=== PATIENT | male | born 1930 | race Caucasian/White ===

== ENCOUNTER 2017-08-26 09:43 | Emergency (ER) | payer MEDICARE, OTHER ==
[2017-08-26] MEDS ORDERED: 0.9 % SODIUM CHLORIDE 1,000 ML BAG IV ONE (09:52)
--- NOTE | 2017-08-26 09:57 | Emergency Department Record ---
History of Present Illness - General Chief Complaint: Dizziness Stated Complaint: WEAK/DIZZY Time Seen by Provider: 08/26/17 09:50 Source: Patient, Family Mode of Arrival: Wheelchair Limitations: No limitations - History of Present Illness Initial Comments: 86 yo male presents with a feeling of dizziness and lightheaded starting yesterday morning. He states when he changes position or stands up he gets dizzy and light headed. No headaches, vision changes, double vision, speech changes, coordination changes of the arms or legs. NO weakness of movements. He states he has prior atrial fibrillation but checks his pulse frequently and it has been regular. No chest pain or shortness of breath. No history of stroke. He has had similar episodes on several occasions in the past. He has a history of vertigo. PCP is Lis. Cardio is Voice. MD Complaint: Dizziness, Lightheadedness -: Days(s) (2) Timing: Gradual onset Description: Difficulty walking, Lightheadedness, Sense of movement History of Same: Yes History of Trauma: No Severity: Moderate Improves With: Remaining still Worsens With: Movement, Position Associated Symptoms: Denies other symptoms - Nehal Coma Scale Eye Response: (4) Open spontaneously Motor Response: (6) Obeys commands Verbal Response: (5) Oriented Nehal Total: 15 - Related Data Home Medications Medication Instructions Recorded Confirmed Last Taken Aspirin [Adult Aspirin Regimen] 81 mg PO DAILY 08/26/17 08/26/17 08/26/17 Cranberry Fruit Extract [Cranberry] 500 mg PO ASDIR 08/26/17 08/26/17 08/26/17 Previous Rx's Medication Instructions Recorded Meclizine HCl [Antivert] 25 mg PO Q8H #20 tablet 08/26/17 Allergies Allergy/AdvReac Type Severity Reaction Status Date / Time hydrocodone bitartrate Allergy ALTERED Unverified 04/08/17 16:24 [From Vicodin] MENTAL STATUS rofecoxib [From Vioxx] AdvReac ALTERED Verified 08/26/17 09:52 MENTAL STATUS Review of Systems Constitutional: Denies: Chills, Fever, Malaise, Weakness Eyes: Reports: Other (No double vision). Denies: Eye discharge, Eye pain, Photophobia, Vision change ENT: Denies: Congestion, Dental pain, Ear pain, Throat pain Respiratory: Denies: Cough, Dyspnea, Hemoptysis, Stridor, Wheezes Cardiovascular: Denies: Arrhythmia (hx of afib but not palpitations), Chest pain , Dyspnea on exertion, Edema, Palpitations, Syncope Endocrine: Denies: Fatigue, Polydipsia, Polyuria Gastrointestinal: Denies: Abdominal pain, Diarrhea, Nausea, Vomiting Genitourinary: Denies: Dysuria, Frequency, Hematuria Musculoskeletal: Denies: Arthralgia, Back pain, Joint swelling, Myalgia Skin: Denies: Bruising, Change in color, Rash Neurological: Reports: Vertigo. Denies: Abnormal gait, Confusion, Headache, Numbness, Paresthesias, Seizure, Tingling, Tremors, Weakness Psychiatric: Denies: Anxiety Hematological/Lymphatic: Denies: Blood Clots, Easy bleeding, Easy bruising, Swollen glands Past Medical History - SOCIAL HISTORY Smoking Status: Former smoker - RESPIRATORY Hx Respiratory Disorders: No - CARDIOVASCULAR Hx Cardio Disorders: Yes Hx Hypotension: Yes (postural) Comment:: high cholestrol - NEURO Hx Neuro Disorders: No - GI Hx GI Disorders: No - Hx Genitourinary Disorders: Yes Hx Prostate Problems: Yes - ENDOCRINE Hx Endocrine Disorders: No - MUSCULOSKELETAL Hx Musculoskeletal Disorders: No - PSYCH Hx Psych Problems: No - HEMATOLOGY/ONCOLOGY Hx Hematology/Oncology Disorders: Yes Hx Cancer: Yes (prostate) Physical Exam - General General Appearance: Alert, Oriented x3, Cooperative, No acute distress, Other ( Well appearing, clear speech, very conversational without limits) Limitations: No limitations - Head Head exam: Atraumatic, Normocephalic, Normal inspection Head exam detail: negative: Abrasion, Contusion, Hematoma - Eye Eye exam: Normal appearance, PERRL, EOMI. negative: Conjunctival injection, Nystagmus, Periorbital swelling, Scleral icterus - ENT ENT exam: Normal exam, Mucous membranes moist, Normal orophraynx, TM's normal bilaterally (minimal non occlusive wax). negative: Mucous membranes dry Ear exam: Normal external inspection Nasal Exam: Normal inspection Mouth exam: Normal external inspection Teeth exam: Normal inspection Throat exam: Normal inspection - Neck Neck exam: Normal inspection, Full ROM. negative: Lymphadenopathy, Meningismus , Tenderness - Respiratory Respiratory exam: Normal lung sounds bilaterally. negative: Respiratory distress, Rhonchi, Stridor, Wheezes - Cardiovascular Cardiovascular Exam: Regular rate, Normal rhythm, Normal heart sounds. negative : Diastolic murmur, Irregular rhythm, Systolic murmur Peripheral Pulses: 2+: Radial (R), Radial (L) - GI/Abdominal GI/Abdominal exam: Soft. negative: Tenderness - Rectal Rectal exam: Deferred - exam: Deferred - Extremities Extremities exam: Normal inspection, Full ROM, Normal capillary refill. negative: Calf tenderness, Joint swelling, Pedal edema, Tenderness - Back Back exam: Reports: Normal inspection. Denies: CVA tenderness (R), CVA tenderness (L), Paraspinal tenderness, Vertebral tenderness - Neurological Neurological exam: Alert, CN II-XII intact, Oriented X3, Other (Normal FTN, NO PND, symmetric face clear speech). negative: Altered, Motor sensory deficit - Psychiatric Psychiatric exam: Normal affect, Normal mood. negative: Agitated, Anxious - Skin Skin exam: Dry, Intact, Normal color, Warm Course - Reevaluation(s) Reevaluation #1: The patient is sitting up in the bed. He is asymptomatic. He does reproduce the symptoms with bending over forward. Less reproduced with turning of the head. No weakness or coordination changes on examination. The symptoms are mild and definitely reproduced with position changes. No symptoms if still. No additional neurologic signs of symptoms associated. 08/26/17 09:58 08/26/17 10:00 EKG 09:57 paced rhythm, capture. No acute abnormality. 08/26/17 10:48 No acute changes on the CBC 08/26/17 11:02 No significant acute changes on the CMP 08/26/17 11:02 No acute changes of the brain. Age related changes. Thickening of the ethmoid air cells. 08/26/17 11:05 08/26/17 11:32 The UA is negative for acute process 08/26/17 11:54 The patient's fluid are complete He is feeling much improved We discussed home care, antivert, close follow up with the PCP and reasons to return to the ED Medical Decision Making - Lab Data Result diagrams: 08/26/17 10:05 08/26/17 10:05 Disposition Disposition: Discharge Clinical Impression: Dizziness Disposition: Home, Self-Care Condition: (1) Good Instructions: Vertigo (ED), Dizziness (ED) Additional Instructions: Return immediately if you have any new symptoms or concerns Call your doctor for close follow up Return if the antivert is not controlling the symptoms Prescriptions: Meclizine HCl [Antivert] 25 mg PO Q8H #20 tablet Forms: Patient Portal Access Time of Disposition: 11:05 Quality - Quality Measures Quality Measures: N/A - Blood Pressure Screening Does Patient Have Any of the Following: Active Dx of HTN Blood Pressure Classification: Hypertensive Reading Systolic Measurement: 141 Diastolic Measurement: 72 Screening for High Blood Pressure: Patient Exclusion, Hx of HTN [G9744]
[2017-08-26 10:21] LABS: BASO % 0.5 % (0-6); EOS % 4.1 % (0-6); GRAN % 55.3 % (47-80); HEMOGLOBIN 13.6 gm/dl (14.0-18.0); LYMPH % 30.9 % (16-45); MEAN CELL VOLUME 93.4 fl (81-97); MEAN CORPUSCULAR HGB CONC 33.2 g/dl (32-36); MEAN PLATELET VOLUME 9.8 fl (7.4-10.4); MONO % 9.2 % (0-9); PLATELET COUNT 151 K/uL (130-400); RED BLOOD COUNT 4.39 M/uL (4.40-5.70); RED CELL DISTRIBUTION WIDTH 13.5 % (11.5-14.5); WHITE BLOOD COUNT W/O DIFF 5.6 K/uL (4.2-12.2)
[2017-08-26 10:27] LABS: MEAN CORPUSCULAR HEMOGLOBIN 30.9 pg (27-33)
[2017-08-26 10:44] LABS: BLOOD UREA NITROGEN 24 mg/dL (8-23); CREATININE 0.8 mg/dL (0.7-1.2); EST GLOMERULAR FILTRATION RATE > 60 mL/min; TOTAL PROTEIN 6.8 g/dL (6.6-8.7)
[2017-08-26 10:46] LABS: GLUCOSE,RANDOM 121 mg/dL (74-109)
[2017-08-26 10:49] LABS: ALB/GLOB RATIO 1.4 (1.1-1.8); ALKALINE PHOSPHATASE 39 U/L (40-129); ALT/SGPT 20 U/L (<41); AST/SGOT 16 U/L (10.0-50.0)
[2017-08-26 11:07] LABS: URINE APPEARANCE CLEAR; URINE BILIRUBIN NEGATIVE (NEGATIVE); URINE BLOOD NEGATIVE (NEGATIVE); URINE COLOR YELLOW; URINE GLUCOSE (UA) NEGATIVE (NEGATIVE); URINE KETONE NEGATIVE (NEGATIVE); URINE LEUKOCYTE ESTERASE NEGATIVE (NEGATIVE); URINE NITRITE NEGATIVE (NEGATIVE); URINE PROTEIN NEGATIVE (NEGATIVE); URINE UROBILINOGEN 0.2 E.U./dL (0.20 - 1.00)
[2017-08-26] MEDS ORDERED: MECLIZINE 25 MG TABLET PO ONE (11:17)
--- NOTE | 2017-08-27 09:20 | CT SCAN REPORT ---
EXAM: CT OF THE BRAIN WITHOUT CONTRAST HISTORY: DIZZINESS. TECHNIQUE: CT of the brain without contrast was obtained. Comparison: None. FINDINGS: The globes are intact. Mucosal thickening and polyps of the ethmoid air cells bilaterally. There is no displaced or depressed skull fracture. There is no intra or extraaxial hemorrhage. Bilateral basal ganglia calcifications. CT is limited for the evaluation of acute infarct. No CT evidence for large or territorial acute infarct. Age appropriate atrophy with small vessel ischemic change. No mass or midline shift. IMPRESSION: 1. AGE APPROPRIATE ATROPHY. SMALL VESSEL ISCHEMIC CHANGE. 2. MUCOSAL THICKENING AND POLYPS OF THE ETHMOID AIR CELLS BILATERALLY. JOB NUMBER: [id number] MTDD
== END 2017-08-26 12:30 | disposition home or self-care (01) ==
LOC: ER 09:43
DX: R42 Dizziness and giddiness (principal); I48.91 Unspecified atrial fibrillation; I10 Essential (primary) hypertension; Z87.891 Personal history of nicotine dependence
CPT/HCPCS: 70450; 80053; 81003; 83735; 85025; 93005; 93010; 96360; 96361; 99284; J7030

== ENCOUNTER 2017-09-22 12:38 | Emergency (ER) | payer MEDICARE, OTHER ==
--- NOTE | 2017-09-22 12:53 | Emergency Department Record ---
History of Present Illness - General Chief Complaint: Dizziness Stated Complaint: DIZINESS Source: Patient Mode of Arrival: Ambulatory Limitations: No limitations - History of Present Illness Initial Comments: 86 yo male presents with an episode of brief lightheadedness that he described as a hot flash while sitting helping his clean up in the bathroom. She is physically very frail and he provides most of her care. No chest pain. He is on Niacin and has had similar episodes before. He was able to get to the bed and lay down. The symptoms resolved at that time. When he laid down he did break out in a sweat that has resolved. He is now completely back to baseline and feels like he "can wrestle a tiger". His pacer was checked about 1 week ago and reports it was given a normal report. No chest pain, shortness of breath, cough, fever, leg swelling. MD Complaint: Dizziness, Lightheadedness -: Minutes(s) Timing: Sudden onset Description: Lightheadedness History of Same: No History of Trauma: No Severity: Moderate Improves With: Rest Worsens With: Position Associated Symptoms: Diaphoresis - Nehal Coma Scale Eye Response: (4) Open spontaneously Motor Response: (6) Obeys commands Verbal Response: (5) Oriented Nehal Total: 15 - Related Data Previous Rx's Medication Instructions Recorded Meclizine HCl [Antivert] 25 mg PO Q8H #20 tablet 08/26/17 Cephalexin [Keflex] 500 mg PO TID #21 cap 09/22/17 Allergies Allergy/AdvReac Type Severity Reaction Status Date / Time hydrocodone bitartrate Allergy ALTERED Verified 09/22/17 12:46 [From Vicodin] MENTAL STATUS rofecoxib [From Vioxx] AdvReac ALTERED Verified 09/22/17 12:46 MENTAL STATUS Review of Systems Constitutional: Denies: Chills, Fever, Malaise, Weakness Eyes: Denies: Eye discharge ENT: Denies: Congestion, Throat pain Respiratory: Denies: Cough, Dyspnea Cardiovascular: Denies: Chest pain, Palpitations, Syncope Endocrine: Denies: Fatigue Gastrointestinal: Denies: Abdominal pain, Diarrhea, Nausea, Vomiting Genitourinary: Denies: Dysuria, Frequency, Hematuria Musculoskeletal: Denies: Arthralgia, Back pain, Joint swelling, Myalgia Skin: Denies: Bruising, Change in color, Rash Neurological: Denies: Abnormal gait, Confusion, Headache, Numbness, Paresthesias , Seizure, Tingling, Tremors, Vertigo, Weakness Psychiatric: Denies: Anxiety Hematological/Lymphatic: Denies: Blood Clots, Easy bleeding, Easy bruising, Swollen glands Past Medical History - SOCIAL HISTORY Smoking Status: Former smoker - RESPIRATORY Hx Respiratory Disorders: No - CARDIOVASCULAR Hx Cardio Disorders: Yes Hx Hypotension: Yes (postural) Comment:: high cholestrol - NEURO Hx Neuro Disorders: No - GI Hx GI Disorders: No - Hx Genitourinary Disorders: Yes Hx Prostate Problems: Yes - ENDOCRINE Hx Endocrine Disorders: No - MUSCULOSKELETAL Hx Musculoskeletal Disorders: No - PSYCH Hx Psych Problems: No - HEMATOLOGY/ONCOLOGY Hx Hematology/Oncology Disorders: Yes Hx Cancer: Yes (prostate) Physical Exam - General General Appearance: Alert, Oriented x3, Cooperative, No acute distress Limitations: No limitations - Head Head exam: Normal inspection - Eye Eye exam: Normal appearance, PERRL. negative: Conjunctival injection, Scleral icterus - ENT ENT exam: Normal exam Ear exam: Normal external inspection Nasal Exam: Normal inspection Mouth exam: Normal external inspection Teeth exam: Normal inspection Throat exam: Normal inspection - Neck Neck exam: Normal inspection, Full ROM. negative: Tenderness - Respiratory Respiratory exam: Normal lung sounds bilaterally. negative: Respiratory distress - Cardiovascular Cardiovascular Exam: Regular rate, Normal rhythm, Normal heart sounds Peripheral Pulses: 2+: Radial (R), Radial (L) - GI/Abdominal GI/Abdominal exam: Soft. negative: Tenderness - Rectal Rectal exam: Deferred - exam: Deferred - Extremities Extremities exam: Normal inspection, Full ROM, Normal capillary refill. negative: Tenderness - Back Back exam: Reports: Normal inspection, Full ROM. Denies: CVA tenderness (R), CVA tenderness (L), Muscle spasm, Rash noted, Tenderness - Neurological Neurological exam: Alert, Normal gait, Oriented X3, Reflexes normal. negative: Altered, Motor sensory deficit - Psychiatric Psychiatric exam: Normal affect, Normal mood - Skin Skin exam: Dry, Intact, Normal color, Warm Course - Reevaluation(s) Reevaluation #1: 09/22/17 13:10 The patient states he is able to interrogate the pacer by phone/internet. He called the number for his manufacturing to assist in this process. 09/22/17 13:53 EKG 1242 Paced AV paced, capture, no ectopy, acute abnormality. No changes from the prior. 09/22/17 14:24 The labs were reviewed. No acute changes of the CBC,CMP,Mg Pace rhythm remains on the monitor 09/22/17 15:03 The troponin is negative Awaiting a call from the pacemaker c s s representative. 09/22/17 16:26 The pacer rn neurosurgical rep returned our call The patient family brought in his interrogation device The patient interrogated his device and a report was sent to his pacer rep to evaluate for cardiac event at the time of symptoms 09/22/17 16:44 The [employer] interrogation rep called. The device was interrogated. Normal function, no malfunction, no arrhythmia. 09/22/17 16:54 The patient has been in the ED 4 hours. Repeat troponin ordered He asked be to look at his right great toe. He has a mild ingrown nail with a thickened nail. There is minimal granulation tissue at the distal end. He requests referral for podiatry 09/22/17 17:38 The repeat troponin is negative Medical Decision Making - Lab Data Result diagrams: 09/22/17 13:55 09/22/17 13:55 Disposition Disposition: Discharge Clinical Impression: Hot flash in male Disposition: Home, Self-Care Condition: (1) Good Instructions: Ingrown Nail (ED), Dizziness (ED) Additional Instructions: Stop your Niacin for one week Call your doctor tomorrow for a recheck this week Return to the ER if you have any more hot flashes. Prescriptions: Cephalexin [Keflex] 500 mg PO TID #21 cap Referrals: NEIL HERRERA [DOCTOR OF PODIATRY MEDICINE] - Forms: Patient Portal Access Time of Disposition: 16:57 Quality - Quality Measures Quality Measures: N/A - Blood Pressure Screening Does Patient Have Any of the Following: Active Dx of HTN Blood Pressure Classification: Hypertensive Reading Systolic Measurement: 153 Diastolic Measurement: 79 Screening for High Blood Pressure: Patient Exclusion, Hx of HTN [G9744]
[2017-09-22 14:03] LABS: BASO % 0.3 % (0-6); EOS % 1.8 % (0-6); GRAN % 69.6 % (47-80); HEMATOCRIT 38.1 % (42.0-52.0); HEMOGLOBIN 12.4 gm/dl (14.0-18.0); LYMPH % 20.9 % (16-45); MEAN CELL VOLUME 95.5 fl (81-97); MEAN CORPUSCULAR HGB CONC 32.5 g/dl (32-36); MEAN PLATELET VOLUME 9.9 fl (7.4-10.4); MONO % 7.4 % (0-9); PLATELET COUNT 136 K/uL (130-400); RED BLOOD COUNT 3.99 M/uL (4.40-5.70); WHITE BLOOD COUNT W/O DIFF 7.3 K/uL (4.2-12.2)
[2017-09-22 14:15] LABS: BLOOD UREA NITROGEN 25 mg/dL (8-23); CREATININE 0.8 mg/dL (0.7-1.2); EST GLOMERULAR FILTRATION RATE > 60 mL/min
[2017-09-22 14:16] LABS: TOTAL PROTEIN 6.6 g/dL (6.6-8.7)
[2017-09-22 14:18] LABS: GLUCOSE,RANDOM 138 mg/dL (74-109)
[2017-09-22 14:20] LABS: ALB/GLOB RATIO 1.4 (1.1-1.8); ALBUMIN 3.9 g/dL (4.0-5.0); ALT/SGPT 19 U/L (<41); AST/SGOT 17 U/L (10.0-50.0)
[2017-09-22 14:21] LABS: ALKALINE PHOSPHATASE 40 U/L (40-129)
[2017-09-22 16:46] LABS: URINE APPEARANCE CLEAR; URINE BILIRUBIN NEGATIVE (NEGATIVE); URINE BLOOD NEGATIVE (NEGATIVE); URINE COLOR YELLOW; URINE GLUCOSE (UA) NEGATIVE (NEGATIVE); URINE KETONE NEGATIVE (NEGATIVE); URINE LEUKOCYTE ESTERASE NEGATIVE (NEGATIVE); URINE NITRITE NEGATIVE (NEGATIVE); URINE PROTEIN NEGATIVE (NEGATIVE); URINE UROBILINOGEN 0.2 E.U./dL (0.20 - 1.00)
== END 2017-09-22 18:35 | disposition home or self-care (01) ==
LOC: ER 12:38
DX: R23.2 Flushing (principal); R42 Dizziness and giddiness; R61 Generalized hyperhidrosis; L60.0 Ingrowing nail; I95.1 Orthostatic hypotension; Z87.891 Personal history of nicotine dependence
CPT/HCPCS: 80053; 81003; 83735; 84484; 85025; 93005; 93010; 99284

== ENCOUNTER 2018-02-23 14:23 | Emergency (ER) | payer MEDICARE, OTHER ==
--- NOTE | 2018-02-23 14:46 | Emergency Department Record ---
History of Present Illness - General Chief complaint: Male Urogenital Problem Stated complaint: BOOD WHOILE URINATING,URGENT FEELING TO URINATE Time Seen by Provider: 02/23/18 14:35 Source: Patient Mode of Arrival: Ambulatory Limitations: No limitations - History of Present Illness Initial comments: The patient is here due to a 2 hour hx of frequent urination and dysuria. The onset was sudden. The patient is having mild pelvic pain but no AP, nausea, vomiting, or back pain. MD Complaint: Dysuria Onset/Timin -: Hour(s) Location: Abdomen Radiation: None Severity scale (1-10): 8 Quality: Burning Consistency: Constant Improves with: None Worsens with: None - Related Data Previous Rx's Medication Instructions Recorded Meclizine HCl [Antivert] 25 mg PO Q8H #20 tablet 08/26/17 Sulfamethoxazole/Trimethoprim 1 tab PO BID #14 tab 02/23/18 [Bactrim Ds] Allergies Allergy/AdvReac Type Severity Reaction Status Date / Time hydrocodone bitartrate Allergy ALTERED Unverified 10/28/17 14:33 [From Vicodin] MENTAL STATUS rofecoxib [From Vioxx] AdvReac ALTERED Unverified 10/28/17 14:33 MENTAL STATUS Travel Screening - Travel/Exposure Within Last 30 Days Have you traveled within the last 30 days?: No - Travel/Exposure Within Last Year Have you traveled outside the [place] in the last year?: No - Additonal Travel Details Have you been exposed to anyone with a communicable illness?: No Review of Systems Constitutional: Denies: Chills, Fever Eyes: Denies: Eye discharge ENT: Denies: Congestion Respiratory: Denies: Cough, Dyspnea Cardiovascular: Denies: Arrhythmia Endocrine: Denies: Fatigue Gastrointestinal: Denies: Abdominal pain Genitourinary: Reports: Dysuria Musculoskeletal: Denies: Arthralgia, Back pain Past Medical History - SOCIAL HISTORY Smoking Status: Former smoker Alcohol Use: None Drug Use: None - RESPIRATORY Hx Respiratory Disorders: No - CARDIOVASCULAR Hx Cardio Disorders: Yes Hx Hypotension: Yes (postural) Hx Pacemaker/Defib: Yes Comment:: high cholestrol - NEURO Hx Neuro Disorders: No - GI Hx GI Disorders: No - Hx Genitourinary Disorders: Yes Hx Kidney Stones: Yes Hx Prostate Problems: Yes - ENDOCRINE Hx Endocrine Disorders: No - MUSCULOSKELETAL Hx Musculoskeletal Disorders: No - PSYCH Hx Psych Problems: No - HEMATOLOGY/ONCOLOGY Hx Hematology/Oncology Disorders: Yes Hx Cancer: Yes (prostate) Family Medical History Any Significant Family History?: No Hx Cancer: Father, Mother Physical Exam - General General Appearance: Alert, Oriented x3, Cooperative, No acute distress - Head Head exam: Atraumatic, Normocephalic, Normal inspection - Eye Eye exam: Normal appearance, PERRL - Neck Neck exam: Normal inspection, Full ROM. negative: Tenderness - Respiratory Respiratory exam: Normal lung sounds bilaterally. negative: Respiratory distress - Cardiovascular Cardiovascular Exam: Regular rate, Normal rhythm, Normal heart sounds. negative : Diastolic murmur, Systolic murmur - GI/Abdominal GI/Abdominal exam: Soft, Normal bowel sounds. negative: Rebound, Rigid, Tenderness - Extremities Extremities exam: Normal inspection, Full ROM, Normal capillary refill. negative: Tenderness - Back Back exam: Denies: Normal inspection - Neurological Neurological exam: Alert, Normal gait. negative: Abnormal gait, Motor sensory deficit Course Vital Signs 02/23/18 14:24 Temperature 98.3 F Pulse Rate 68 Respiratory 16 Rate Blood Pressure 152/83 Pulse Ox 94 L - Reevaluation(s) Reevaluation #1: The patient had a bladder scan done and the volume was < 15 mls. 02/23/18 14:58 Reevaluation #2: The patient is doing a lot better at this time. He denies any pain or discomfort and on exam his abdomen is very soft and nontender. I did explain to him the need to continue the Bactrim and to see his family doctor later this week. He is to return to the ER for any worsening symptoms. 02/23/18 15:33 02/23/18 15:34 Medical Decision Making - Data Complexity MDM Data: Labs Ordered and/or Reviewed - Lab Data Result diagrams: 02/23/18 14:50 02/23/18 14:50 Disposition Disposition: Discharge Clinical Impression: Cystitis Disposition: Home, Self-Care Condition: (2) Stable Instructions: Urinary Tract Infection in Men (ED) Additional Instructions: Please stop the Eliquis for 1 day and take the Bactrim as directed. Drink plenty of fluids. Please see your family doctor for recheck later this week. Please return to the ER for any pain, vomiting, fever, or bleeding. Prescriptions: Sulfamethoxazole/Trimethoprim [Bactrim Ds] 1 tab PO BID #14 tab Forms: Patient Portal Access Time of Disposition: 15:37 Quality - Quality Measures Quality Measures: N/A - Blood Pressure Screening View Details: Yes Does Patient Have Any of the Following: No Blood Pressure Classification: Pre-Hypertensive BP Reading Systolic Measurement: 159 Diastolic Measurement: 82 Screening for High Blood Pressure: < Pre-Hypertensive BP, F/U Documented > [ G8950] Pre-Hypertensive Follow-up Interventions: Referral to alternative/primary care provider.
[2018-02-23 15:00] LABS: BASO % 0.2 % (0-6); EOS % 1.7 % (0-6); GRAN % 72.7 % (47-80); HEMATOCRIT 38.7 % (42.0-52.0); HEMOGLOBIN 12.6 gm/dl (14.0-18.0); LYMPH % 18.4 % (16-45); MEAN CELL VOLUME 91.5 fl (81-97); MEAN CORPUSCULAR HEMOGLOBIN 29.7 pg (27-33); MEAN CORPUSCULAR HGB CONC 32.6 g/dl (32-36); MEAN PLATELET VOLUME 9.7 fl (7.4-10.4); PLATELET COUNT 146 K/uL (130-400); RED BLOOD COUNT 4.23 M/uL (4.40-5.70); RED CELL DISTRIBUTION WIDTH 13.3 % (11.5-14.5); URINE APPEARANCE CLOUDY; URINE BILIRUBIN MODERATE (NEGATIVE); URINE BLOOD LARGE (NEGATIVE); URINE COLOR RED; URINE GLUCOSE (UA) NEGATIVE (NEGATIVE); URINE KETONE TRACE (NEGATIVE); URINE LEUKOCYTE ESTERASE LARGE (NEGATIVE); URINE NITRITE POSITIVE (NEGATIVE)
[2018-02-23 15:01] LABS: URINE PROTEIN 300 mg/dL (NEGATIVE)
[2018-02-23 15:08] LABS: URINE BACTERIA 1+; URINE EPITHELIAL CELLS NONE SEEN (FEW); URINE WBC 16 - 20 (0-2/hpf)
[2018-02-23 15:12] LABS: BLOOD UREA NITROGEN 21 mg/dL (8-23); EST GLOMERULAR FILTRATION RATE > 60 mL/min; INR 1.1; PARTIAL THROMBOPLASTIN TIME 31.9 SECONDS (24.5-39.1); PROTHROMBIN TIME (PATIENT) 11.2 SECONDS (9.5-12.1)
[2018-02-23 15:14] LABS: GLUCOSE,RANDOM 119 mg/dL (74-109)
[2018-02-23] MEDS ORDERED: TMP/SMZ 160MG/800MG TAB PO ONE (15:17)
== END 2018-02-23 16:00 | disposition home or self-care (01) ==
LOC: ER 14:23
DX: N30.90 Cystitis, unspecified without hematuria (principal); R10.9 Unspecified abdominal pain; I95.9 Hypotension, unspecified; Z87.891 Personal history of nicotine dependence; Z95.0 Presence of cardiac pacemaker; Z79.01 Long term (current) use of anticoagulants
CPT/HCPCS: 99283 ×2; 85025; 85730; 85610; 80048; 81001; J3490

== ENCOUNTER 2018-04-12 15:43 | Observation (INO) | payer MEDICARE, OTHER ==
--- NOTE | 2018-04-12 15:57 | Emergency Department Record ---
History of Present Illness - General Chief complaint: Male Urogenital Problem Stated complaint: UTI Time Seen by Provider: 04/12/18 15:57 Source: Patient Mode of Arrival: Ambulatory Limitations: No limitations - History of Present Illness Initial comments: The patient is here due to a one day hx of weakness, dysuria and low grade fever. He did have a UA 4 days ago that was positive for an Ecoli infection. The patient also has had a chronic cough. There has been no hx of vomiting, diarrhea, back pain, or PHILLIPS. MD Complaint: Dysuria Onset/Timin -: Days(s) Severity: Moderate Severity scale (1-10): 1 Reports: Denies other symptoms - Related Data Previous Rx's Medication Instructions Recorded Meclizine HCl [Antivert] 25 mg PO Q8H #20 tablet 08/26/17 Allergies Allergy/AdvReac Type Severity Reaction Status Date / Time hydrocodone bitartrate Allergy ALTERED Verified 04/12/18 15:53 [From Vicodin] MENTAL STATUS rofecoxib [From Vioxx] AdvReac ALTERED Verified 04/12/18 15:53 MENTAL STATUS Travel Screening - Travel/Exposure Within Last 30 Days Have you traveled within the last 30 days?: No - Travel/Exposure Within Last Year Have you traveled outside the [place] in the last year?: No - Additonal Travel Details Have you been exposed to anyone with a communicable illness?: No - Travel Symptoms Symptom Screening: None Review of Systems Constitutional: Reports: Fever, Malaise. Denies: Chills Eyes: Denies: Eye discharge ENT: Reports: Congestion Respiratory: Reports: Cough. Denies: Dyspnea Cardiovascular: Denies: Arrhythmia Endocrine: Reports: Fatigue Gastrointestinal: Denies: Abdominal pain, Vomiting Genitourinary: Reports: Dysuria Musculoskeletal: Denies: Arthralgia Skin: Denies: Bruising Past Medical History - SOCIAL HISTORY Smoking Status: Former smoker Alcohol Use: None Drug Use: None - RESPIRATORY Hx Respiratory Disorders: No - CARDIOVASCULAR Hx Cardio Disorders: Yes Hx Hypotension: Yes (postural) Hx Pacemaker/Defib: Yes Comment:: high cholestrol - NEURO Hx Neuro Disorders: No - GI Hx GI Disorders: No - Hx Genitourinary Disorders: Yes Hx Kidney Stones: Yes Hx Prostate Problems: Yes Hx UTI: Yes (recently) - ENDOCRINE Hx Endocrine Disorders: No - MUSCULOSKELETAL Hx Musculoskeletal Disorders: No - PSYCH Hx Psych Problems: No - HEMATOLOGY/ONCOLOGY Hx Hematology/Oncology Disorders: Yes Hx Cancer: Yes (prostate) Family Medical History Any Significant Family History?: Yes Hx Cancer: Father, Mother Physical Exam - General General Appearance: Alert, Oriented x3, Cooperative, No acute distress - Head Head exam: Atraumatic, Normocephalic, Normal inspection - Eye Eye exam: Normal appearance, PERRL - Neck Neck exam: Normal inspection, Full ROM. negative: Tenderness - Respiratory Respiratory exam: Normal lung sounds bilaterally. negative: Respiratory distress - Cardiovascular Cardiovascular Exam: Regular rate, Normal rhythm, Normal heart sounds - GI/Abdominal GI/Abdominal exam: Soft, Normal bowel sounds. negative: Tenderness - Extremities Extremities exam: Normal inspection, Full ROM, Normal capillary refill. negative: Tenderness - Back Back exam: Reports: Normal inspection - Neurological Neurological exam: Alert, Normal gait. negative: Abnormal gait, Motor sensory deficit - Psychiatric Psychiatric exam: negative: Anxious Course Vital Signs 04/12/18 15:49 Temperature 100.5 F H Pulse Rate 91 H Respiratory 24 Rate Blood Pressure 166/74 Pulse Ox 95 - Reevaluation(s) Reevaluation #1: The patient is doing a lot better at this time. His temp is improving and he denies any CP, SOB, or [place]. His initial RA biox was 95% but now laying down it is reading about 90% but the patient is asymptomatic. I did discuss the positive UA with the fever and the need to stay as an inpatient in the hospital and the patient did agree. I also did discuss the case with Dr. Tamayo and he does agree with the plan to admit. 04/12/18 17:38 Medical Decision Making - Data Complexity MDM Data: Labs Ordered and/or Reviewed, X-Ray Ordered and/or Reviewed - Lab Data Result diagrams: 04/12/18 16:00 04/12/18 16:00 - Radiology Data Radiology results: Report reviewed (CXR: Neg.) Disposition Disposition: Admit Clinical Impression: Urinary tract infection Qualifiers: Urinary tract infection type: site unspecified Hematuria presence: with hematuria Qualified Code(s): N39.0 - Urinary tract infection, site not specified Disposition: Still a Patient at [facility] Decision to Admit: Admit from ER Decision to Admit Date: 04/12/18 Decision to Admit Time: 17:40 Accepting Physician: Belkis Time Discussed w/Accepting Physician: 17:41 Condition: (2) Stable Forms: Patient Portal Access Time of Disposition: 17:41 Quality - Quality Measures Quality Measures: N/A - Blood Pressure Screening View Details: Yes Does Patient Have Any of the Following: Active Dx of HTN Blood Pressure Classification: Hypertensive Reading Systolic Measurement: 166 Diastolic Measurement: 74 Screening for High Blood Pressure: Patient Exclusion, Hx of HTN [[id number]]
[2018-04-12] MEDS ORDERED: ACETAMINOPHEN 325 MG TAB PO ONE (16:02)
[2018-04-12] MEDS ORDERED: SODIUM CHLORIDE 0.9% 500 ML IV ONE (16:02)
[2018-04-12] MEDS ORDERED: CEFTRIAXONE SODIUM 1 GM in 0.9 % SODIUM CHLORIDE 100ML 100 ML IVPB ONE (16:03)
[2018-04-12 16:10] LABS: BASO % 0.1 % (0-6); EOS % 0.1 % (0-6); GRAN % 72.9 % (47-80); HEMATOCRIT 37.2 % (42.0-52.0); HEMOGLOBIN 12.2 gm/dl (14.0-18.0); LYMPH % 16.2 % (16-45); MEAN CELL VOLUME 91.6 fl (81-97); MEAN CORPUSCULAR HGB CONC 32.8 g/dl (32-36); MEAN PLATELET VOLUME 9.2 fl (7.4-10.4); MONO % 10.7 % (0-9); PLATELET COUNT 147 K/uL (130-400); RED BLOOD COUNT 4.06 M/uL (4.40-5.70); RED CELL DISTRIBUTION WIDTH 13.8 % (11.5-14.5); WHITE BLOOD COUNT W/O DIFF 12.2 K/uL (4.2-12.2)
[2018-04-12 16:19] LABS: BLOOD UREA NITROGEN 17 mg/dL (8-23); CREATININE 1.1 mg/dL (0.7-1.2); EST GLOMERULAR FILTRATION RATE > 60 mL/min
[2018-04-12 16:21] LABS: INR 1.3; PARTIAL THROMBOPLASTIN TIME 37.2 SECONDS (24.5-39.1); PROTHROMBIN TIME (PATIENT) 12.5 SECONDS (9.5-12.1)
[2018-04-12 16:22] LABS: GLUCOSE,RANDOM 132 mg/dL (74-109)
[2018-04-12 17:13] LABS: URINE BILIRUBIN NEGATIVE (NEGATIVE); URINE BLOOD MODERATE (NEGATIVE); URINE COLOR YELLOW; URINE GLUCOSE (UA) NEGATIVE (NEGATIVE); URINE KETONE TRACE (NEGATIVE); URINE LEUKOCYTE ESTERASE MODERATE (NEGATIVE); URINE NITRITE POSITIVE (NEGATIVE); URINE UROBILINOGEN 0.2 E.U./dL (0.20 - 1.00)
[2018-04-12 17:15] LABS: URINE APPEARANCE CLOUDY
[2018-04-12 17:20] LABS: URINE BACTERIA 2+; URINE EPITHELIAL CELLS 0 - 2 (FEW); URINE RBC >50 (NONE SEEN); URINE WBC >50 (0-2/hpf)
[2018-04-12] MEDS: MECLIZINE 25 MG TABLET PO SCH (18:50)
[2018-04-12] MEDS: 0.9 % SODIUM CHLORIDE 1000ML 1,000 ML IV PRN (19:51)
[2018-04-12] MEDS: SOTALOL HCL 80 MG TABLET PO SCH (21:30)
[2018-04-12] MEDS: APIXABAN 5MG TABLET PO SCH (21:30)
[2018-04-13] MEDS: MECLIZINE 25 MG TABLET PO SCH ×2 (02:05→10:02)
[2018-04-13] MEDS ORDERED: CEFTRIAXONE SODIUM 1 GM in 0.9 % SODIUM CHLORIDE 100ML 100 ML IVPB SCH (04:00)
[2018-04-13 06:16] LABS: BASO % 0.3 % (0-6); EOS % 0.4 % (0-6); GRAN % 68.9 % (47-80); HEMATOCRIT 31.8 % (42.0-52.0); HEMOGLOBIN 10.4 gm/dl (14.0-18.0); LYMPH % 18.1 % (16-45); MEAN CELL VOLUME 92.2 fl (81-97); MEAN CORPUSCULAR HEMOGLOBIN 30.1 pg (27-33); MEAN CORPUSCULAR HGB CONC 32.7 g/dl (32-36); MEAN PLATELET VOLUME 9.4 fl (7.4-10.4); MONO % 12.3 % (0-9); PLATELET COUNT 129 K/uL (130-400); RED BLOOD COUNT 3.45 M/uL (4.40-5.70); RED CELL DISTRIBUTION WIDTH 13.8 % (11.5-14.5); WHITE BLOOD COUNT W/O DIFF 11.1 K/uL (4.2-12.2)
[2018-04-13 06:28] LABS: BLOOD UREA NITROGEN 16 mg/dL (8-23); CREATININE 0.9 mg/dL (0.7-1.2); EST GLOMERULAR FILTRATION RATE > 60 mL/min; GLUCOSE,RANDOM 119 mg/dL (74-109)
[2018-04-13] MEDS: 0.9 % SODIUM CHLORIDE 1000ML 1,000 ML IV PRN (06:29)
[2018-04-13] MEDS: ACETAMINOPHEN 325 MG TAB PO PRN ×2 (06:31→13:38)
--- NOTE | 2018-04-13 07:20 | RADIOLOGY REPORT ---
EXAM: CHEST, TWO VIEWS HISTORY: WEAKNESS AND COUGH FOR A FEW DAYS. TECHNIQUE: AP and lateral views of the chest were obtained. Comparison: Two view chest 03/24/17. FINDINGS: Dual lead pacemaker remains in place. Cardiomegaly. Calcification and torsion of the aorta. Prominent apical pleural thickening bilaterally. The lungs appear somewhat hyperinflated suggesting underlying COPD. No definite acute infiltrate seen and no pleural effusion or pneumothorax evident. Mild thoracic dextroscoliosis. IMPRESSION: 1. THE LUNGS APPEAR HYPERINFLATED SUGGESTING COPD. 2. CARDIOMEGALY. 3. PACEMAKER. 4. CALCIFICATION AND MILD TORSION OF THE AORTA. 5. NO ACUTE INFILTRATE IDENTIFIED. JOB NUMBER: [id number] MTDD
[2018-04-13] MEDS ORDERED: CARVEDILOL 3.125 MG TABLET PO SCH (10:00)
[2018-04-13] MEDS ORDERED: CEFDINIR 300 MG CAPSULE PO SCH (10:00)
[2018-04-13] MEDS: SOTALOL HCL 80 MG TABLET PO SCH (10:02)
[2018-04-13] MEDS: APIXABAN 5MG TABLET PO SCH (10:02)
--- NOTE | 2018-04-13 10:15 | History & Physical ---
History of Present Illness - Date of Service Date of Service for History & Physical: 04/13/18 - History of Present Illness Admitting Diagnosis: 1. Acute Urosepsis History of Present Illness: Mr. Simpson is an 87 year-old male who presented to the ED on 04/12 with a one -day history of weakness, dysuria, and low grade fever. He was initially seen in [facility], [place] and directed to the ED for concern of sepsis. He denied nausea, vomiting, back pain and headache. He did have a UA on 04/08 that was positive for e coli infection. He was started on bactrim on 04/08, however, per urine culture and sensitivity- bacteria was resistant to bactrim. His history includes: afib (on eliquis), COPD, ex-smoker, hypertension, postural hypotension, pacemaker, 2nd degree AV block, hyperlipidemia, renal stones, prostate cancer. In the ED, his temp was 100.5F, BP 166/74, HR 91, RR 24, and pulse ox 95% on room air. His UA was positive for protein, trace ketones, nitrates, and moderate leuks. Urine was sent for culture. CBC and CMP stable. Pt. was admitted for urosepsis, failed outpatient antibiotic therapy. 1 gram of IV rocephin was administered in the ED. 04/13/18 0930: Pt. is resting comfortably in bed. He currently denies any pain with urination and urinary frequency. He stated that when he voided this morning, it was the largest amount of urine that he has had in several days. His vitals have remained stable. Labs this morning remain stable. Plan to change from IV to PO antibiotics, will start cefdinir 300mg bid (per previous UA sensitivity). Plan to d/c home this evening if patient is able to tolerate PO abx and remains afebrile. PCP: Dr. Tamayo Travel Screening - Travel/Exposure Within Last 30 Days Have you traveled within the last 30 days?: No - Travel/Exposure Within Last Year Have you traveled outside the [place] in the last year?: No - Additonal Travel Details Have you been exposed to anyone with a communicable illness?: No - Travel Symptoms Symptom Screening: Fever (GT 100.4), Weakness, Fatigue, Lack of Appetite Review of Systems Constitutional: Reports: Fever, Malaise. Denies: Chills Eyes: Denies: Eye discharge ENT: Reports: Congestion Respiratory: Reports: Cough. Denies: Dyspnea Cardiovascular: Denies: Arrhythmia Endocrine: Reports: Fatigue Gastrointestinal: Denies: Abdominal pain, Vomiting Genitourinary: Reports: Dysuria Musculoskeletal: Denies: Arthralgia Skin: Denies: Bruising Past Medical History - SOCIAL HISTORY Smoking Status: Former smoker Alcohol Use: None Drug Use: None - RESPIRATORY Hx Respiratory Disorders: No - CARDIOVASCULAR Hx Cardio Disorders: Yes Hx Hypertension: Yes Hx Hypotension: Yes (postural) Hx Pacemaker/Defib: Yes Comment:: high cholestrol - NEURO Hx Neuro Disorders: No - GI Hx GI Disorders: No - Hx Genitourinary Disorders: Yes Hx Kidney Stones: Yes Hx Prostate Problems: Yes Hx UTI: Yes (recently) - ENDOCRINE Hx Endocrine Disorders: No - MUSCULOSKELETAL Hx Musculoskeletal Disorders: No - PSYCH Hx Psych Problems: No - HEMATOLOGY/ONCOLOGY Hx Hematology/Oncology Disorders: Yes Hx Cancer: Yes (prostate) Family Medical History Any Significant Family History?: Yes Hx Cancer: Father, Mother H&P Meds/Allergies - Allergies Allergies: Allergies Allergy/AdvReac Type Severity Reaction Status Date / Time hydrocodone bitartrate Allergy ALTERED Verified 04/12/18 15:53 [From Vicodin] MENTAL STATUS rofecoxib [From Vioxx] AdvReac ALTERED Verified 04/12/18 15:53 MENTAL STATUS - Home Medications Previous Rx's Medication Instructions Recorded Meclizine HCl [Antivert] 25 mg PO Q8H #20 tablet 08/26/17 - Active Medications Active Medications: Current Medications Acetaminophen (Tylenol 325mg) 650 mg PO Q6H PRN PRN Reason: PAIN - MILD(1-4)/FEVER Last Admin: 04/13/18 06:31 Dose: 650 mg Apixaban (Eliquis) 5 mg PO BID [facility] Last Admin: 04/12/18 21:30 Dose: 5 mg Carvedilol (Coreg) 6.25 mg PO BID KRYSTAL Cefdinir (Cefdinir) 300 mg PO Q12H [facility] Stop: 04/20/18 10:01 Sodium Chloride () 1,000 mls @ 80 mls/hr IV .[id number] PRN PRN Reason: LARGE VOLUME IV Last Admin: 04/13/18 06:29 Dose: 80 mls/hr Meclizine HCl (Antivert) 25 mg PO Q8H [facility] Last Admin: 04/13/18 02:05 Dose: 25 mg Sotalol HCl (Betapace) 80 mg PO BID [facility] Last Admin: 04/12/18 21:30 Dose: 80 mg Physical Exam - Vital Signs Vital Signs: Vital Signs - Last 24 Hrs Temp Pulse Pulse Resp BP BP Pulse Ox 04/13/18 07:30 97.8 F 65 18 126/63 93 L 04/12/18 20:44 62 16 04/12/18 20:26 98.1 F 62 16 92/42 93 L 04/12/18 18:44 16 04/12/18 18:24 97.6 F 62 18 123/66 91 L 04/12/18 17:27 99.8 F H 04/12/18 16:55 99.8 F H 63 20 134/63 90 L 04/12/18 15:49 100.5 F H 91 H 24 166/74 95 - General General Appearance: Alert, Oriented x3, Cooperative, No acute distress Limitations: No limitations - Head Head exam: Atraumatic, Normocephalic, Normal inspection - Eye Eye exam: Normal appearance, PERRL - Neck Neck exam: Normal inspection, Full ROM. negative: Tenderness - Respiratory Respiratory exam: Normal lung sounds bilaterally. negative: Respiratory distress - Cardiovascular Cardiovascular Exam: Regular rate, Normal rhythm, Normal heart sounds - GI/Abdominal GI/Abdominal exam: Soft, Normal bowel sounds. negative: Tenderness - Extremities Extremities exam: Normal inspection, Full ROM, Normal capillary refill. negative: Tenderness - Back Back exam: Reports: Normal inspection - Neurological Neurological exam: Alert, Normal gait. negative: Abnormal gait, Motor sensory deficit - Psychiatric Psychiatric exam: negative: Anxious Results - Labs Result Diagrams: 04/13/18 06:09 04/13/18 06:09 Labs Last 24 Hours: Laboratory Results - last 24 hr 04/12/18 04/12/18 04/12/18 16:00 16:00 16:00 WBC 12.2 RBC 4.06 L Hgb 12.2 L Hct 37.2 L MCV 91.6 MCH 30.0 MCHC 32.8 RDW 13.8 Plt Count 147 MPV 9.2 Gran % 72.9 Lymphocytes % 16.2 Monocytes % 10.7 H Eosinophils % 0.1 Basophils % 0.1 PT INR APTT Sodium 135 L Potassium 4.9 H Chloride 95 L Carbon Dioxide 27.0 Anion Gap 13.0 BUN 17 Creatinine 1.1 Estimated GFR > 60 Random Glucose 132 H Calcium 9.2 C-Reactive Protein 5.68 H Urine Color Urine Appearance Urine pH Ur Specific [place] Urine Protein Urine Glucose (UA) Urine Ketones Urine Blood Urine Nitrite Urine Bilirubin Urine Urobilinogen Ur Leukocyte Esterase Urine RBC Urine WBC Ur Epithelial Cells Urine Bacteria 04/12/18 04/12/18 04/13/18 16:00 17:12 06:09 WBC 11.1 RBC 3.45 L Hgb 10.4 L Hct 31.8 L MCV 92.2 MCH 30.1 MCHC 32.7 RDW 13.8 Plt Count 129 L MPV 9.4 Gran % 68.9 Lymphocytes % 18.1 Monocytes % 12.3 H Eosinophils % 0.4 Basophils % 0.3 PT 12.5 H INR 1.3 APTT 37.2 Sodium Potassium Chloride Carbon Dioxide Anion Gap BUN Creatinine Estimated GFR Random Glucose Calcium C-Reactive Protein Urine Color Yellow Urine Appearance Cloudy Urine pH 6.0 Ur Specific [place] 1.025 Urine Protein 100 mg/dl H Urine Glucose (UA) Negative Urine Ketones Trace H Urine Blood Moderate Urine Nitrite Positive H Urine Bilirubin Negative Urine Urobilinogen 0.2 Ur Leukocyte Esterase Moderate H Urine RBC >50 Urine WBC >50 Ur Epithelial Cells 0 - 2 Urine Bacteria 2+ 04/13/18 06:09 WBC RBC Hgb Hct MCV MCH MCHC RDW Plt Count MPV Gran % Lymphocytes % Monocytes % Eosinophils % Basophils % PT INR APTT Sodium 135 L Potassium 4.2 Chloride 99 Carbon Dioxide 23.0 Anion Gap 13.0 BUN 16 Creatinine 0.9 Estimated GFR > 60 Random Glucose 119 H Calcium 8.3 L C-Reactive Protein Urine Color Urine Appearance Urine pH Ur Specific [place] Urine Protein Urine Glucose (UA) Urine Ketones Urine Blood Urine Nitrite Urine Bilirubin Urine Urobilinogen Ur Leukocyte Esterase Urine RBC Urine WBC Ur Epithelial Cells Urine Bacteria VTE H&P Assessment - Risk for VTE Risk for VTE: Yes Risk Level: Moderate Risk Assessment Date: 04/13/18 Risk Assessment Time: 10:21 VTE Orders Placed or Will Be Placed: No VTE Reason for No Prophylaxis: Not Indicated (Pt is on Eliquis for afib) Plan - Inpatient Certification Inpatient Certification: Admit to inpatient care: Based on my medical assessment, after consideration of patient's risk factors (age, co-morbidities and patient presenting symptoms and acuity), I expect that this patient will remain in the hospital greater than or equal to two midnights and that the services needed warrant inpatient care because: Patient Risk Factors: [] Estimated length of stay: [] The patient may reasonably be expected to be discharged or transferred to a hospital within 96 hours after admission to [facility]. Services needed: [] Post hospital care (if known): [] I certify that my determination is in accordance with my understanding of Medicare requirements for reasonable and necessary inpatient services. - Detailed Diagnosis and Plan (1) Urinary tract infection Current Visit: Yes Status: Acute Qualifiers: Urinary tract infection type: site unspecified Hematuria presence: with hematuria Qualified Code(s): N39.0 - Urinary tract infection, site not specified; R31.9 - Hematuria, unspecified Base Code: N39.0 - URINARY TRACT INFECTION, SITE NOT SPECIFIED Comment: -UA in ED on 04/12 positive for nitrates, lueks, >50 WBCs and RBCs, 2+ bacteria -Urine culture pending -Changed IV abx to PO- cefdinir 300mg bid (planning total of 7 days). -will consider d/c home this evening if pt is able to tolerate PO abx and remains afebrile. (2) At risk for deep venous thrombosis Current Visit: Yes Status: Acute Base Code: Z91.89 - OTH PERSONAL RISK FACTORS, NOT ELSEWHERE CLASSIFIED Comment: 04/13/18: -Mod risk for DVT due to decreased mobility, urosepsis, and a-fib -Pt. is already anticoagulated with Eliquis (3) Full code status Current Visit: Yes Status: Acute Base Code: Z78.9 - OTHER SPECIFIED HEALTH STATUS Comment: 04/13/18: -Pt. is a full code
--- NOTE | 2018-04-13 15:15 | Discharge Summary ---
Providers Discharge Summary Date: 04/13/18 Date of admission: 04/12/18 18:04 Expected Date of Discharge: 04/13/18 Attending physician: JONA TAMAYO Primary care physician: JONA TAMAYO Physical Exam - Vital Signs Vital Signs: Vital Signs - Last 24 Hrs Temp Pulse Pulse Resp BP BP Pulse Ox 04/13/18 12:00 62 18 125/49 93 L 04/13/18 09:00 18 04/13/18 07:30 97.8 F 65 18 126/63 93 L 04/12/18 20:44 62 16 04/12/18 20:26 98.1 F 62 16 92/42 93 L 04/12/18 18:44 16 04/12/18 18:24 97.6 F 62 18 123/66 91 L 04/12/18 17:27 99.8 F H 04/12/18 16:55 99.8 F H 63 20 134/63 90 L 04/12/18 15:49 100.5 F H 91 H 24 166/74 95 - General General Appearance: Alert, Oriented x3, Cooperative, No acute distress Limitations: No limitations - Head Head exam: Atraumatic, Normocephalic, Normal inspection - Eye Eye exam: Normal appearance, PERRL - Neck Neck exam: Normal inspection, Full ROM. negative: Tenderness - Respiratory Respiratory exam: Normal lung sounds bilaterally. negative: Respiratory distress - Cardiovascular Cardiovascular Exam: Regular rate, Normal rhythm, Normal heart sounds - GI/Abdominal GI/Abdominal exam: Soft, Normal bowel sounds. negative: Tenderness - Extremities Extremities exam: Normal inspection, Full ROM, Normal capillary refill. negative: Tenderness - Back Back exam: Reports: Normal inspection - Neurological Neurological exam: Alert, Normal gait. negative: Abnormal gait, Motor sensory deficit - Psychiatric Psychiatric exam: negative: Anxious Hospitalization - Hospitalization Admission Diagnosis: 1. Acute Urosepsis - Problem List/Discharge Diagnosis (1) Urinary tract infection Current Visit: Yes Status: Acute Discharge Diagnosis: Urinary tract infection type: site unspecified Hematuria presence: with hematuria Qualified Code(s): N39.0 - Urinary tract infection, site not specified; R31.9 - Hematuria, unspecified Base Code: N39.0 - URINARY TRACT INFECTION, SITE NOT SPECIFIED Comment: -UA in ED on 04/12 positive for nitrates, lueks, >50 WBCs and RBCs, 2+ bacteria -Urine culture pending -Changed IV abx to PO- cefdinir 300mg bid (planning total of 7 days). -will consider d/c home this evening if pt is able to tolerate PO abx and remains afebrile. (2) At risk for deep venous thrombosis Current Visit: Yes Status: Acute Base Code: Z91.89 - OTH PERSONAL RISK FACTORS, NOT ELSEWHERE CLASSIFIED Comment: 04/13/18: -Mod risk for DVT due to decreased mobility, urosepsis, and a-fib -Pt. is already anticoagulated with Eliquis (3) Full code status Current Visit: Yes Status: Acute Base Code: Z78.9 - OTHER SPECIFIED HEALTH STATUS Comment: 04/13/18: -Pt. is a full code - Hospitalization Course Disposition: Home, Self-Care Hospital Course: Mr. Simpson is an 87 year-old male who presented to the ED on 04/12 with a one -day history of weakness, dysuria, and low grade fever. He was initially seen in [facility] and directed to the ED for concern of sepsis. He denied nausea, vomiting, back pain and headache. He did have a UA on 04/08 that was positive for e coli infection. He was started on bactrim on 04/08, however, per urine culture and sensitivity- bacteria was resistant to bactrim. His history includes: afib (on eliquis), COPD, ex-smoker, hypertension, postural hypotension, pacemaker, 2nd degree AV block, hyperlipidemia, renal stones, prostate cancer. In the ED, his temp was 100.5F, BP 166/74, HR 91, RR 24, and pulse ox 95% on room air. His UA was positive for protein, trace ketones, nitrates, and moderate leuks. Urine was sent for culture. CBC and CMP stable. Pt. was admitted for urosepsis, failed outpatient antibiotic therapy. 1 gram of IV rocephin was administered in the ED. 04/13/18 0930: Pt. is resting comfortably in bed. He currently denies any pain with urination and urinary frequency. He stated that when he voided this morning, it was the largest amount of urine that he has had in several days. His vitals have remained stable. Labs this morning remain stable. Plan to change from IV to PO antibiotics, will start cefdinir 300mg bid (per previous UA sensitivity). Plan to d/c home this evening if patient is able to tolerate PO abx and remains afebrile. 04/13/18 1500: Pt. has tolerated his oral abx and continues to report increased urination. He has remained afebrile and denies pain. He states that he is eager to go home because he takes care of his . Plan to discharge home, pt. to resume cefdinir 300mg bid, first home dose at 10pm tonight. f/u with PCP in 3-5 days. PCP: Dr. Tamayo Procedures: Imaging and X-Rays 04/12/18 16:03 CHEST 2 VIEWS [RAD] Stat Abnormal Labs: Abnormal Lab Results 04/12/18 04/12/18 04/12/18 Range/Units 16:00 16:00 16:00 RBC 4.06 L (4.40-5.70) M/uL Hgb 12.2 L (14.0-18.0) gm/dl Hct 37.2 L (42.0-52.0) % Plt Count (130-400) K/uL Monocytes % 10.7 H (0-9) % PT (9.5-12.1) SECONDS Sodium 135 L (136-145) mmol/L Potassium 4.9 H (3.4-4.5) mmol/L Chloride 95 L (98-107) mmol/L Random Glucose 132 H (74-109) mg/dL Calcium (8.8-10.2) mg/dL C-Reactive Protein 5.68 H (<0.5) mg/dL Urine Protein (NEGATIVE) Urine Ketones (NEGATIVE) Urine Nitrite (NEGATIVE) Ur Leukocyte Esterase (NEGATIVE) 04/12/18 04/12/18 04/13/18 Range/Units 16:00 17:12 06:09 RBC 3.45 L (4.40-5.70) M/uL Hgb 10.4 L (14.0-18.0) gm/dl Hct 31.8 L (42.0-52.0) % Plt Count 129 L (130-400) K/uL Monocytes % 12.3 H (0-9) % PT 12.5 H (9.5-12.1) SECONDS Sodium (136-145) mmol/L Potassium (3.4-4.5) mmol/L Chloride (98-107) mmol/L Random Glucose (74-109) mg/dL Calcium (8.8-10.2) mg/dL C-Reactive Protein (<0.5) mg/dL Urine Protein 100 mg/dl H (NEGATIVE) Urine Ketones Trace H (NEGATIVE) Urine Nitrite Positive H (NEGATIVE) Ur Leukocyte Esterase Moderate H (NEGATIVE) 04/13/18 Range/Units 06:09 RBC (4.40-5.70) M/uL Hgb (14.0-18.0) gm/dl Hct (42.0-52.0) % Plt Count (130-400) K/uL Monocytes % (0-9) % PT (9.5-12.1) SECONDS Sodium 135 L (136-145) mmol/L Potassium (3.4-4.5) mmol/L Chloride (98-107) mmol/L Random Glucose 119 H (74-109) mg/dL Calcium 8.3 L (8.8-10.2) mg/dL C-Reactive Protein (<0.5) mg/dL Urine Protein (NEGATIVE) Urine Ketones (NEGATIVE) Urine Nitrite (NEGATIVE) Ur Leukocyte Esterase (NEGATIVE) Condition at Discharge: (2) Stable VTE Discharge VTE Reason For No Overlap Therapy: Not Indicated Discharge Medications - Discharge Medications Prescriptions: Cefdinir 300 mg PO Q12H #13 capsule Home Medications: Ambulatory Orders Cholecalciferol (Vitamin D3) [Vitamin D3] 5,000 unit PO DAILY 01/27/15 [Last Taken 1 Day Ago ~04/11/18] Multivitamin [Multi-Vitamin Daily] 1 each PO DAILY 01/27/15 [Last Taken 1 Day Ago ~04/11/18] Niacinamide [Niacin] 500 mg PO DAILY 01/27/15 [Last Taken 1 Day Ago ~04/11/18] Vitamin E 400 unit PO DAILY 01/27/15 [Last Taken 1 Day Ago ~04/11/18] Carvedilol 6.25 mg PO ASDIR 03/24/17 [Last Taken 1 Day Ago ~04/11/18] Meclizine HCl [Antivert] 25 mg PO Q8H #20 tablet 08/26/17 [Last Taken 1 Day Ago ~04/11/18] Ascorbic Acid [Vitamin C] 1,000 mg PO DAILY tab 01/27/18 [Last Taken 1 Day Ago ~04/11/18] Ginkgo Biloba [place] Extract [Ginkgo Biloba] 120 mg PO DAILY cap 01/27/18 [Last Taken 1 Day Ago ~04/11/18] Glucosam/Chond-MSM 2/C/D3/Jamie [Qkqwydxyjx-Aejtrmeanfc-OEG Tab] 1 each PO DAILY tab 01/27/18 [Last Taken 1 Day Ago ~04/11/18] Multivit-Min/FA/Lycopen/Lutein [Centrum Silver Ultra Men's Tab] 1 each PO DAILY tab 01/27/18 [Last Taken 1 Day Ago ~04/11/18] Sotalol HCl [Sotalol] 80 mg PO BID 30 Days #60 tab 01/27/18 [Last Taken 1 Day Ago ~04/11/18] Cefdinir 300 mg PO Q12H #13 capsule 04/13/18 [Last Taken Unknown] Discharge Plan - Discharge Instructions Activity at Discharge: Increase Activity as Tolerated Diet at Discharge: Regular Diet Additional Instructions: The [facility] News Operations Manager, Danay, will call you at home to schedule an appointment with Dr. Tamayo. You should see Dr. Tamayo within 1-2 weeks of going home. First dose of cefdinir 300mg tonight at 10pm, take with food Increase fluids Return to the ED if you experience fever, weakness, or any chest pain Quality Measures - Quality Measures Quality Measures: Advance Directives, Documentation of Current Medications in Medical Record, Elder Maltreatment Screen and Follow-Up Plan, Screening for High Blood Pressure and F/U Documented - Current Medications Quality Measure: Measure #130: Documentation of Current Medications Documentation of Current Medications: <Current Medications Documented/Reviewed> [G8427] - Blood Pressure Screening Quality Measure: Screening for High Blood Pressure and Follow-Up Documented Does Patient Have Any of the Following: Active Dx of HTN Blood Pressure Classification: Hypertensive Reading Systolic Measurement: 166 Diastolic Measurement: 74 Screening for High Blood Pressure: Patient Exclusion, Hx of HTN [G9744] - Advance Directives Quality Measure: Measure #47: Care Plan Advance Directives Established: Yes Advance Directives Information Provided To Patient: Declined Advance Directives on File: No Living Will: Yes Power of Radio Operator Ground: Yes Power of Radio Operator Ground Name: Daughter. Advance Care Planning: <Care Plan/Decision Maker Documented; Discussed & Documented> [3233F] - Elder Abuse Suspicion Index Screening: Elder Abuse Suspicion Index Screening Rely on people for bathing, dressing, shopping, banking, etc: No Prevented from getting food, clothes, medication, etc: No Made to feel shamed or threatened by someone: No Forced to sign papers or use money against will: No Feel afraid, touched in ways not wanted or hurt physically: No Poor eye contact, withdrawn, malnourished, cuts or bruises: No Screening Result: Negative result EASI Reference Information: Steph VELASCO, Leanna C, Vinny D, Caity Jaimes.Development and validation of a tool to assist physicians identification of elder abuse: The Elder Abuse Suspicion Index (EASI ). Journal of Elder Abuse and Neglect, 2008; 20 (3): 276-300. - Elder Maltreatment Screen Quality Measures: Elder Maltreatment Screen and Follow-Up Plan Elder Maltreatment Screen: <Negative, No Follow-Up Plan Required> [O3625]
[2018-04-13] MEDS ORDERED: CEFTRIAXONE 1GM/50ML BAG 1 GM/50 ML BAG IVPB SCH (18:00)
== END 2018-04-13 16:50 | disposition home or self-care (01) ==
LOC: ER 15:43 → MEDSURG 18:04 → INTOOBSV 18:04
PROVIDERS: ADMIT Internal Medicine; ATTEND Internal Medicine
DX: A41.9 Sepsis, unspecified organism (principal); R31.9 Hematuria, unspecified; I48.91 Unspecified atrial fibrillation; Z79.01 Long term (current) use of anticoagulants; I95.1 Orthostatic hypotension; I10 Essential (primary) hypertension; R05 Cough; R50.9 Fever, unspecified; Z95.0 Presence of cardiac pacemaker; Z87.442 Personal history of urinary calculi; Z85.46 Personal history of malignant neoplasm of prostate; Z87.891 Personal history of nicotine dependence
CPT/HCPCS: 85025 ×2; 85730; 85610; 86140; 80048 ×2; 81001; 71046; G0378 ×2; J3490 ×3; 96365; 96366; 99223; 99285

== ENCOUNTER 2018-09-04 12:37 | Emergency (ER) | payer MEDICARE, OTHER ==
[2018-09-04 12:51] LABS: URINE APPEARANCE CLOUDY; URINE BILIRUBIN NEGATIVE (NEGATIVE); URINE BLOOD LARGE (NEGATIVE); URINE COLOR RED; URINE GLUCOSE (UA) NEGATIVE (NEGATIVE); URINE KETONE NEGATIVE (NEGATIVE); URINE LEUKOCYTE ESTERASE LARGE (NEGATIVE); URINE NITRITE NEGATIVE (NEGATIVE); URINE UROBILINOGEN 0.2 E.U./dL (0.20 - 1.00)
[2018-09-04 13:05] LABS: URINE EPITHELIAL CELLS NONE SEEN (FEW); URINE WBC 16 - 20 (0-2/hpf)
--- NOTE | 2018-09-04 13:08 | Emergency Department Record ---
History of Present Illness - General Chief complaint: Male Urogenital Problem Stated complaint: UTI Time Seen by Provider: 09/04/18 12:52 Source: Patient Mode of Arrival: Ambulatory Limitations: No limitations - History of Present Illness Initial comments: Pt with urinary frequency and urgency with hx of recurrent UTI. Last about 6 weeks ago. No fever, nausea, back pain. No blood seen in urine. MD Complaint: Dysuria Onset/Timin -: Days(s) Severity: Moderate Severity scale (1-10): 8 Quality: Aching, Burning - Related Data Previous Rx's Medication Instructions Recorded Sulfamethoxazole/Trimethoprim 1 each PO BID 7 Days #14 tablet 09/04/18 [Bactrim Ds Tablet] Allergies Allergy/AdvReac Type Severity Reaction Status Date / Time hydrocodone bitartrate Allergy ALTERED Verified 09/04/18 12:44 [From Vicodin] MENTAL STATUS rofecoxib [From Vioxx] AdvReac ALTERED Verified 09/04/18 12:44 MENTAL STATUS Travel Screening - Travel/Exposure Within Last 30 Days Have you traveled within the last 30 days?: No - Travel/Exposure Within Last Year Have you traveled outside the [place] in the last year?: No - Additonal Travel Details Have you been exposed to anyone with a communicable illness?: No - Travel Symptoms Symptom Screening: None Review of Systems Constitutional: Denies: Chills, Fever, Weakness Eyes: Denies: Eye discharge, Photophobia ENT: Denies: Congestion Respiratory: Denies: Cough, Hemoptysis Cardiovascular: Denies: Arrhythmia, Chest pain Endocrine: Denies: Fatigue Gastrointestinal: Denies: Abdominal pain, Constipation, Nausea, Vomiting Genitourinary: Reports: As per HPI, Dysuria, Frequency Musculoskeletal: Denies: Arthralgia Skin: Denies: Bruising Neurological: Denies: Abnormal gait, Headache Psychiatric: Denies: Anxiety Hematological/Lymphatic: Denies: Anemia Past Medical History - SOCIAL HISTORY Smoking Status: Former smoker Alcohol Use: None Drug Use: None - RESPIRATORY Hx Respiratory Disorders: No - CARDIOVASCULAR Hx Cardio Disorders: Yes Hx Hypertension: Yes Hx Hypotension: Yes (postural) Hx Pacemaker/Defib: Yes Comment:: high cholestrol - NEURO Hx Neuro Disorders: No - GI Hx GI Disorders: No - Hx Genitourinary Disorders: Yes Hx Kidney Stones: Yes Hx Prostate Problems: Yes Hx UTI: Yes (recently) - ENDOCRINE Hx Endocrine Disorders: No - MUSCULOSKELETAL Hx Musculoskeletal Disorders: No - PSYCH Hx Psych Problems: No - HEMATOLOGY/ONCOLOGY Hx Hematology/Oncology Disorders: Yes Hx Cancer: Yes (prostate) Family Medical History Any Significant Family History?: Yes Hx Cancer: Father, Mother Physical Exam - General General Appearance: Alert, Oriented x3, Cooperative, No acute distress - Head Head exam: Normal inspection - Eye Eye exam: Normal appearance, PERRL - ENT ENT exam: Normal exam, Mucous membranes moist, Normal external ear exam, Normal orophraynx, TM's normal bilaterally - Neck Neck exam: Normal inspection, Full ROM. negative: Tenderness - Respiratory Respiratory exam: Normal lung sounds bilaterally. negative: Respiratory distress - Cardiovascular Cardiovascular Exam: Regular rate, Normal rhythm, Normal heart sounds - GI/Abdominal GI/Abdominal exam: Soft, Normal bowel sounds. negative: Tenderness - Extremities Extremities exam: Normal inspection, Full ROM, Normal capillary refill. negative: Tenderness - Back Back exam: Reports: Normal inspection, Full ROM. Denies: Muscle spasm, Rash noted, Tenderness - Neurological Neurological exam: Alert, Normal gait, Oriented X3 - Psychiatric Psychiatric exam: Normal affect, Normal mood - Skin Skin exam: Normal color. negative: Rash Course Vital Signs 09/04/18 12:45 Temperature 97.5 F L Pulse Rate [ 63 Pulse Ox Probe] Respiratory 18 Rate Blood Pressure 121/89 [Left Arm] Pulse Ox 93 L - Reevaluation(s) Reevaluation #1: 09/04/18 13:06 Seen and exam. UA + for UTI. Reviewed Culture from last UTI and sensitive to all AB. Treated with Macrobid last episode. Will try Bactrim. Medical Decision Making - Lab Data Lab Results 09/04/18 Range/Units 12:45 Urine Color Red H Urine Appearance Cloudy Urine pH 6.0 (5.0-8.0) Ur Specific [place] 1.025 (1.002-1.030) Urine Protein 100 mg/dl H (NEGATIVE) Urine Glucose (UA) Negative (NEGATIVE) Urine Ketones Negative (NEGATIVE) Urine Blood Large H (NEGATIVE) Urine Nitrite Negative (NEGATIVE) Urine Bilirubin Negative (NEGATIVE) Urine Urobilinogen 0.2 (0.20 - 1.00) E.U./dL Ur Leukocyte Esterase Large H (NEGATIVE) Disposition Disposition: Discharge Clinical Impression: UTI (urinary tract infection) Disposition: Home, Self-Care Condition: (1) Good Instructions: Urinary Tract Infection in Men (ED) Prescriptions: Sulfamethoxazole/Trimethoprim [Bactrim Ds Tablet] 1 each PO BID 7 Days #14 tablet Time of Disposition: 13:07 Quality - Quality Measures Quality Measures: N/A - Blood Pressure Screening Does Patient Have Any of the Following: No Blood Pressure Classification: Pre-Hypertensive BP Reading Systolic Measurement: 121 Diastolic Measurement: 89 Screening for High Blood Pressure: < Pre-Hypertensive BP, F/U Documented > [ G8950] Pre-Hypertensive Follow-up Interventions: Follow-up with rescreen every year.
== END 2018-09-04 13:14 | disposition home or self-care (01) ==
LOC: ER 12:37
DX: N39.0 Urinary tract infection, site not specified (principal); I10 Essential (primary) hypertension; Z87.891 Personal history of nicotine dependence
CPT/HCPCS: 81001; 99282; 99283

== ENCOUNTER 2019-02-17 08:52 | Day surgery (SDC) | payer MEDICARE, OTHER ==
[2019-02-17] MEDS ORDERED: PROPOFOL 10 MG/ML VIAL IV ONE (08:53)
[2019-02-17] MEDS ORDERED: LIDOCAINE 2% MDV (20MG/ML) 20ML VIAL IV ONE (08:53)
== END 2019-02-17 10:32 | disposition home or self-care (01) ==
LOC: HOP 08:52
PROVIDERS: ATTEND Internal Medicine Gastroenterology
DX: R10.13 Epigastric pain (principal); K21.9 Gastro-esophageal reflux disease without esophagitis; K29.80 Duodenitis without bleeding; K29.50 Unspecified chronic gastritis without bleeding; I10 Essential (primary) hypertension; E78.00 Pure hypercholesterolemia, unspecified; I48.91 Unspecified atrial fibrillation

== ENCOUNTER 2019-03-12 10:31 | Emergency (ER) | payer MEDICARE, OTHER ==
--- NOTE | 2019-03-12 10:49 | Emergency Department Record ---
History of Present Illness - General Chief complaint: Weakness Stated complaint: AMB Time Seen by Provider: 03/12/19 10:37 Source: Patient Mode of Arrival: EMS Limitations: No limitations - History of Present Illness Initial comments: The patient is here due to generalized weakness for one day. He states the weakness started yesterday evening and persisted through the night. This AM he felt he may be in Afib which he does have a hx of but that feeling has resolved at this time. He does take Sotolol and Eliquis. The patient presently is feeling better and denies any hx of any CP, SOB, AP, fever, back pain, or dysuria. MD Complaint: Generalized weakness Onset/Timin -: Days(s) Location: Generalized - Related Data Home Medications Medication Instructions Recorded Confirmed Last Taken Losartan Potassium 50 mg PO DAILY 03/12/19 03/12/19 03/12/19 Allergies Allergy/AdvReac Type Severity Reaction Status Date / Time hydrocodone bitartrate Allergy ALTERED Verified 03/12/19 10:35 [From Vicodin] MENTAL STATUS rofecoxib [From Vioxx] AdvReac ALTERED Verified 03/12/19 10:35 MENTAL STATUS Review of Systems Constitutional: Reports: Malaise. Denies: Chills, Fever Eyes: Denies: Eye discharge ENT: Denies: Congestion Respiratory: Denies: Cough, Dyspnea Cardiovascular: Denies: Chest pain, Dyspnea on exertion Endocrine: Reports: Fatigue Gastrointestinal: Denies: Nausea Genitourinary: Denies: Dysuria Musculoskeletal: Denies: Arthralgia Skin: Denies: Bruising Past Medical History - SOCIAL HISTORY Smoking Status: Former smoker - RESPIRATORY Hx Respiratory Disorders: No - CARDIOVASCULAR Comment:: high cholestrol - NEURO Hx Neuro Disorders: No - GI Hx GI Disorders: No - Hx Genitourinary Disorders: Yes Hx Kidney Stones: Yes Hx Prostate Problems: Yes Hx UTI: Yes (recently) - ENDOCRINE Hx Endocrine Disorders: No - MUSCULOSKELETAL Hx Musculoskeletal Disorders: No - PSYCH Hx Psych Problems: No - HEMATOLOGY/ONCOLOGY Hx Hematology/Oncology Disorders: Yes Hx Cancer: Yes (prostate) Family Medical History Hx Cancer: Father, Mother Physical Exam - General General Appearance: Alert, Oriented x3, Cooperative, No acute distress - Head Head exam: Atraumatic, Normocephalic, Normal inspection - Eye Eye exam: Normal appearance, PERRL - ENT Throat exam: Normal inspection. negative: Tonsillar erythema, Tonsillar exudate - Neck Neck exam: Normal inspection, Full ROM. negative: Tenderness - Respiratory Respiratory exam: Normal lung sounds bilaterally. negative: Respiratory distress - Cardiovascular Cardiovascular Exam: Regular rate, Normal rhythm, Normal heart sounds - GI/Abdominal GI/Abdominal exam: Soft, Normal bowel sounds. negative: Tenderness - Extremities Extremities exam: Normal inspection, Full ROM, Normal capillary refill. negative: Tenderness - Back Back exam: Reports: Normal inspection - Neurological Neurological exam: Alert, Normal gait. negative: Abnormal gait, Motor sensory deficit - Psychiatric Psychiatric exam: negative: Anxious - Skin Skin exam: negative: Rash Course Vital Signs 03/12/19 10:34 Temperature 97.7 F Pulse Rate [ 67 Pulse Ox Probe] Respiratory 18 Rate Blood Pressure 155/83 [Left Arm] Pulse Ox 96 - Reevaluation(s) Reevaluation #1: The patient is doing a lot better at this time. The weakness is gone and he is resting comfortably. We are waiting on his urine at this time and his lab work is WNL's. 03/12/19 11:46 Reevaluation #2: The patient is doing very well at this time. He feels back to normal and would like to go home. I did explain to him that his lab tests are WNL's and are at his baseline. He is to see his PCP next week if not better. 03/12/19 11:56 Medical Decision Making - Data Complexity MDM Data: Labs Ordered and/or Reviewed, EKG Ordered and/or Reviewed - Lab Data Result diagrams: 03/12/19 11:00 03/12/19 11:00 - EKG Data -: EKG Interpreted by Me (A-V paced.) Disposition Disposition: Discharge Clinical Impression: Weakness Disposition: Home, Self-Care Condition: (2) Stable Instructions: Weakness (ED) Additional Instructions: Please continue your regular medicines and please see your doctor next week if not better. Return to the ER for any worsening symptoms. Forms: Patient Portal Access Time of Disposition: 11:57 Quality - Quality Measures Quality Measures: N/A - Blood Pressure Screening View Details: Yes Does Patient Have Any of the Following: No Blood Pressure Classification: Pre-Hypertensive BP Reading Systolic Measurement: 155 Diastolic Measurement: 83 Screening for High Blood Pressure: < Pre-Hypertensive BP, F/U Documented > [G8950] Pre-Hypertensive Follow-up Interventions: Referral to alternative/primary care provider.
[2019-03-12 11:08] LABS: BASO % 0.2 % (0-6); EOS % 3.3 % (0-6); GRAN % 57.5 % (47-80); HEMATOCRIT 38.4 % (42.0-52.0); HEMOGLOBIN 12.3 gm/dl (14.0-18.0); LYMPH % 28.2 % (16-45); MEAN CORPUSCULAR HEMOGLOBIN 29.1 pg (27-33); MONO % 10.8 % (0-9); PLATELET COUNT 129 K/uL (130-400); RED BLOOD COUNT 4.22 M/uL (4.40-5.70); RED CELL DISTRIBUTION WIDTH 13.9 % (11.5-14.5); WHITE BLOOD COUNT W/O DIFF 5.4 K/uL (4.2-12.2)
[2019-03-12 11:18] LABS: BLOOD UREA NITROGEN 13 mg/dL (8-23)
[2019-03-12 11:19] LABS: CREATININE 0.7 mg/dL (0.7-1.2); EST GLOMERULAR FILTRATION RATE > 60 mL/min; INR 1.2; PROTHROMBIN TIME (PATIENT) 12.3 SECONDS (9.5-12.1); TOTAL PROTEIN 6.6 g/dL (6.6-8.7)
[2019-03-12 11:21] LABS: GLUCOSE,RANDOM 128 mg/dL (74-109)
[2019-03-12 11:24] LABS: ALB/GLOB RATIO 1.5 (1.1-1.8); ALKALINE PHOSPHATASE 42 U/L (40-129); ALT/SGPT 12 U/L (<41); AST/SGOT 16 U/L (10.0-50.0)
[2019-03-12 11:35] LABS: THYROID STIMULATING HORMONE 2.62 uIU/mL (0.270-4.20)
[2019-03-12 11:51] LABS: URINE APPEARANCE CLEAR; URINE BILIRUBIN NEGATIVE (NEGATIVE); URINE BLOOD NEGATIVE (NEGATIVE); URINE COLOR YELLOW; URINE GLUCOSE (UA) NEGATIVE (NEGATIVE); URINE KETONE NEGATIVE (NEGATIVE); URINE LEUKOCYTE ESTERASE NEGATIVE (NEGATIVE); URINE NITRITE NEGATIVE (NEGATIVE); URINE PROTEIN NEGATIVE (NEGATIVE); URINE UROBILINOGEN 0.2 E.U./dL (0.20 - 1.00)
== END 2019-03-12 12:05 | disposition home or self-care (01) ==
LOC: ER 10:31
DX: R53.1 Weakness (principal); I48.91 Unspecified atrial fibrillation; Z79.01 Long term (current) use of anticoagulants; Z87.891 Personal history of nicotine dependence
CPT/HCPCS: 80053; 81003; 84443; 84484; 85025; 85610; 85730; 93005; 93010; 99284